=== PATIENT | female | born 1960 | race Caucasian/White ===

== ENCOUNTER 2023-11-23 15:19 | Outpatient (AMB) | payer OTHER, SELFPAY ==
--- NOTE | 2023-11-23 15:22 | A.OFFVIS_ITS ---
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 The patient has been followed previously for underlying pulmonary nodules. She has that CT scan done up to 2018. we did personally review her CT scan in the office. It appears that she has a 6-7 mm ground-glass the nodular density in the left upper lobe. She has other numerous subcentimeter pulmonary nodules that appear to be more solid in nature. In addition to that the patient developed a new onset abnormality in the right middle lobe with significant mucus plugging and likely consolidation and some evidence of bronchiectasis since then the patient has been having episodes shortness of breath and cough. It is intermittent. Difficult to expectorate moderate severity. Denies any chest pains or hemoptysis. The patient is concerned because there is a family history of cancer in the family. In view of the hazy of ground-glass nodular density in the left upper lobe in addition to the abnormal new finding of the right middle lobe I will go ahead and request a repeat CT scan. The patient would like all her CT scan done the same place. otherwise from a respiratory status the patient does have a short-acting beta agonist. 06/17/2022 the patient is here for a pulmonary follow-up visit. The patient overall has been doing very well. She has been staying active doing a lot of hiking. 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 She has not had to use her rescue inhaler at all. Denies any weight loss or night sweats. She did undergo a repeat CT scan sometime in May. This CT scan was compared to her previous CT scan from 2019. it appears that the patient has multiple pulmonary nodules. But now she does have areas of ground- glass nodular densities. This are also consider subsolid nodular densities. When compared to 2019 no significant changes were noted. Although being classified as subsolid or ground-glass the patient should have a repeat study. Therefore, will plan to repeat the CT scan early 2023. If the patient develops any symptoms prior to that she is to call the office for an earlier evaluation. 11/23/2023 the patient is here for a pulmonary follow-up visit. Overall she is doing well. Denies any worsening respiratory symptoms denies any chest pains or cough. Denies any night sweats or weight loss. Overall she is doing well. She is stopped back from a trip to year. On the way back she did get COVID-19. She just had UR like symptoms. She felt tired. She tested positive for COVID. She just continue conservative management and she did well. The patient now is recovered and back to baseline. In the meantime prior to getting COVID she did have a CT scan of the chest which we personally reviewed. We reviewed her CT scan E she had an October 2023 and subsequently also component to her CT scan from 2019. The patient does have a small border 6 mm pulmonary nodule in the left hemithorax. It is solid in nature. Appears to be very well-demarcated and has not changed in about 5 years. The appearance itself suggests the possibility of carcinoid. Although is reassuring that has not grown. She understands that it is very common to have benign tumor growth. Other pulmonary nodules appeared to be much smaller and throughout. The all the other pulmonary nodules are noted to be stable. In view of the possibility of carcinoid I did recommend she have a repeat CT scan a couple years. If she develops any worsening symptoms prior to that she will call for an earlier assessment. [facility] Medical History (Updated 11/23/23 @ 23:01 by Howard Arrington MD) Pulmonary nodules Social History (Updated 02/14/22 @ 09:40 by JOVANY Anguiano) Patient Tobacco Use Status: Never used Tobacco Review of Systems Const Denies fever(s) and Denies night sweats Eyes Denies change in vision ENT Denies change in voice, Reports nasal congestion and Reports nasal discharge Card Denies chest pain Resp Denies chest congestion, Reports cough, Denies hemoptysis and Denies wheezing GI Reports no additional complaints Musc Reports no additional complaints Skin/Breast Denies rash Neuro Reports no additional complaints Aller/Immun Denies wheezing Physical Exam Vital Signs: Last Vital Signs Pulse 61 11/23/23 15:23 Pulse Ox 98 11/23/23 15:23 Oxygen Delivery Method Room Air 11/23/23 15:23 BMI result Body Mass Index 21.9 Const General: comfortable HEENT Head: Yes normal to inspection Eyes General: appearance normal, both eyes and all related structures Neck Neck: Yes no lymphadenopathy and Yes supple Chest Chest palpation & inspection: normal inspection of the chest Resp Effort & Inspection: normal respiratory effort Auscultation: clear to auscultation bilaterally and no wheezes Cardio Rate: regular rate Rhythm: regular rhythm Heart sounds: S1 normal heart sound present and S2 normal heart sound present GI Inspection: No distended Skin General skin exam: no rashes or lesions noted Extrem General: Yes no clubbing, cyanosis or edema Assessment & Plan Assessment & Plan (1) Asthma: Code(s): J45.909 - Unspecified asthma, uncomplicated Category: Medical Qualifiers: Asthma severity: mild Asthma persistence: intermittent Asthma complication type: uncomplicated Qualified Code(s): J45.20 - Mild intermittent asthma, uncomplicated (2) Pulmonary nodules: Code(s): R91.8 - Other nonspecific abnormal finding of lung field Category: Medical Plan repeat CT scan of the chest 24 months short-acting beta agonist as needed follow-up after CT chest Coding Level of Care Code Est Pt Level 4 (05695) Diagnoses Mild intermittent asthma without complication J45.20 Asthma severity: mild Asthma persistence: intermittent Asthma complication type: uncomplicated Pulmonary nodules R91.8 Time Spent (min) 17
[2023-11-23 15:23] VITALS: PULSE 61; O2SAT 98; BMI 21.9
== END 2023-11-23 15:47 | disposition home or self-care (01) ==
PROVIDERS: PCP Internal Medicine; Visit Provider Hospitalist
DX: J45.20 Mild intermittent asthma, uncomplicated (principal); R91.8 Other nonspecific abnormal finding of lung field
CPT/HCPCS: 99214

== ENCOUNTER → 2023-11-23 15:19 | Outpatient (BNVA) | payer OTHER, SELFPAY | PROVIDERS: PCP Internal Medicine; Visit Provider Hospitalist ==